=== PATIENT | female | born 1935 | race Caucasian/White ===

== ENCOUNTER 2017-09-29 12:58 | Emergency (ER) | payer MEDICARE ==
--- NOTE | 2017-09-29 13:03 | Emergency Department Record ---
History of Present Illness - General Chief Complaint: Shortness of breath Stated Complaint: DAB Time Seen by Provider: 09/29/17 13:02 Source: Patient Mode of Arrival: Ambulatory Limitations: No limitations - History of Present Illness Initial Comments: 82 yo female presents with cough, wheezing and increased shortness of breath for 3 weeks. She has a history of COPD. She is a former smoker. She is not on any home oxygen. Her cough demonstrates a greenish sputum. No blood. No fevers. No edema or chest pain. MD Complaint: Cough, Shortness of breath Severity: Moderate Consistency: Constant Improves With: Nothing Worsens With: Coughing, Exertion Known History Of: COPD - Related Data Home Medications Medication Instructions Recorded Confirmed Last Taken Aspirin [Aspir-Low] 81 mg PO DAILY 09/29/17 09/29/17 Unknown Meloxicam [Meloxicam] 7.5 mg PO ASDIR 09/29/17 09/29/17 Unknown Previous Rx's Medication Instructions Recorded Azithromycin [Zithromax] 250 mg PO DAILY #4 tab 09/29/17 Prednisone [Prednisone 20Mg] 20 mg PO BID #10 tab 09/29/17 Allergies Allergy/AdvReac Type Severity Reaction Status Date / Time codeine Allergy Severe ANAPHYLAXIS Unverified 09/13/17 08:37 Review of Systems Constitutional: Denies: Chills, Fever, Malaise, Weakness Eyes: Denies: Eye discharge, Eye pain ENT: Reports: Congestion, Throat pain Respiratory: Reports: Cough, Dyspnea, Wheezes Cardiovascular: Reports: Dyspnea on exertion. Denies: Chest pain, Edema, Palpitations, Syncope Endocrine: Denies: Fatigue Gastrointestinal: Denies: Abdominal pain, Diarrhea, Nausea Genitourinary: Denies: Dysuria, Urgency Musculoskeletal: Denies: Arthralgia, Back pain, Myalgia Skin: Denies: Bruising, Change in color, Rash Neurological: Denies: Confusion, Headache, Numbness, Weakness Psychiatric: Denies: Anxiety Hematological/Lymphatic: Denies: Easy bleeding, Easy bruising, Swollen glands Past Medical History - SOCIAL HISTORY Smoking Status: Never smoker Drug Use: None - RESPIRATORY Hx Respiratory Disorders: Yes Hx COPD: Yes Hx Pneumonia: Yes - CARDIOVASCULAR Hx Cardio Disorders: Yes Hx Hypertension: Yes - NEURO Hx Neuro Disorders: Yes Hx Brain Tumor: No Hx CVA: No Hx Dementia: No Hx Dizziness: Yes Hx Headaches: No Hx Neuropathy: No Hx Parkinson's Disease: No Hx Seizures: No Hx Speech Problem: No Hx TIA: No - GI Hx GI Disorders: Yes Hx Abdominal Pain: No Hx Celiac Disease: No Hx Crohn's Disease: No Hx Diverticulitis: No Hx GI Bleed: No Hx Reflux: No Hx Hepatitis/Jaundice: No Hx Hiatal Hernia: No Hx Irritable Bowel: No Hx Liver Disease: No Hx Nausea/Vomiting: No Hx Obstructive Bowel: No Hx Pancreatitis: No Hx Rectal Bleeding: No Hx Ulcer: Yes Hx Wt Loss/Wt Gain: Yes Hx of Polyps: No - Hx Genitourinary Disorders: No - ENDOCRINE Hx Endocrine Disorders: No Hx Thyroid Disease: No - MUSCULOSKELETAL Hx Arthritis: Yes Hx Back Injury: Yes Hx Fibromyalgia: No Hx Gout: No Hx Musculoskeletal Disease: No Hx Osteoporosis: No - PSYCH Hx Psych Problems: No - HEMATOLOGY/ONCOLOGY Hx Hematology/Oncology Disorders: No Family Medical History Hx Heart Disease: Father, Mother, Grandparents Physical Exam - General General Appearance: Alert, Oriented x3, Cooperative, No acute distress Limitations: No limitations - Head Head exam: Normal inspection - Eye Eye exam: Normal appearance, PERRL. negative: Conjunctival injection - ENT ENT exam: Normal exam, Mucous membranes moist Ear exam: Normal external inspection Nasal Exam: Normal inspection Mouth exam: Normal external inspection Teeth exam: Normal inspection Throat exam: Normal inspection. negative: Tonsillar erythema, Tonsillar exudate - Neck Neck exam: Normal inspection, Full ROM. negative: Tenderness - Respiratory Respiratory exam: Decreased breath sounds, Prolonged expiratory, Wheezes. negative: Normal lung sounds bilaterally, Accessory muscle use, Chest wall tenderness, Rales, Respiratory distress, Rhonchi, Stridor - Cardiovascular Cardiovascular Exam: Regular rate, Normal rhythm, Normal heart sounds - GI/Abdominal GI/Abdominal exam: Soft. negative: Tenderness - Rectal Rectal exam: Deferred - exam: Deferred - Extremities Extremities exam: Normal inspection, Full ROM, Normal capillary refill. negative: Tenderness - Back Back exam: Reports: Normal inspection, Full ROM. Denies: Muscle spasm, Rash noted, Tenderness - Neurological Neurological exam: Alert, Normal gait, Oriented X3 - Skin Skin exam: Dry, Intact, Normal color, Warm Course - Reevaluation(s) Reevaluation #1: EKG 13:08 NSR rate 75, intervals Qt 479, axis L, ST no acute changes, No changes from the 12/27/16 EKG. 09/29/17 13:30 09/29/17 14:00 The labs were reviewed No acute changes on the CBC or CMP The influenza were negative The chest XR was reviewed and is consistent with COPD no pneumonia The patient is not febrile, tachycardic or hypoxic She was offered OBV for COPD. She adamantly declined and will go home. I SW with her PCP Aida. She will follow up the patient in the office 09/29/17 14:49 Medical Decision Making - Lab Data Result diagrams: 09/29/17 13:09 09/29/17 13:09 Disposition Disposition: Discharge Clinical Impression: Acute bronchitis with chronic obstructive pulmonary disease (COPD) Disposition: Home, Self-Care Condition: (1) Good Instructions: COPD (Chronic Obstructive Pulmonary Disease) (ED) Additional Instructions: Continue the steroids and antibiotics as directed Return if you have fever, short of breath or any new concerns Call Aida for close follow up Monday Prescriptions: Azithromycin [Zithromax] 250 mg PO DAILY #4 tab Prednisone [Prednisone 20Mg] 20 mg PO BID #10 tab Forms: Patient Portal Access Time of Disposition: 14:16 Quality - Quality Measures Quality Measures: N/A - Blood Pressure Screening Does Patient Have Any of the Following: No Blood Pressure Classification: Hypertensive Reading Systolic Measurement: 202 Diastolic Measurement: 94 Screening for High Blood Pressure: < Pre-Hypertensive BP, F/U Documented > [ [id number]] Pre-Hypertensive Follow-up Interventions: Referral to alternative/primary care provider.
[2017-09-29] MEDS ORDERED: IPRATROPIUM/ALBUTEROL (0.5MG/3MG) NEB INH ONE (13:05)
[2017-09-29] MEDS ORDERED: METHYLPREDNISOLONE PF 125MG/VIAL IVP ONE (13:06)
[2017-09-29] MEDS ORDERED: AZITHROMYCIN 500 MG TABLET PO ONE (13:06)
[2017-09-29 13:28] LABS: BASO % 0.7 % (0-6); GRAN % 76.4 % (47-80); HEMATOCRIT 43.5 % (35.0-47.0); HEMOGLOBIN 14.3 gm/dl (11.6-16.0); LYMPH % 13.2 % (16-45); MEAN CELL VOLUME 91.4 fl (81-97); MEAN CORPUSCULAR HGB CONC 32.9 g/dl (32-36); MEAN PLATELET VOLUME 10.4 fl (7.4-10.4); MONO % 4.7 % (0-9); PLATELET COUNT 229 K/uL (130-400); RED BLOOD COUNT 4.76 M/uL (3.80-5.40); RED CELL DISTRIBUTION WIDTH 13.5 % (11.5-14.5); WHITE BLOOD COUNT W/O DIFF 8.7 K/uL (4.2-12.2)
[2017-09-29 13:36] LABS: BILIRUBIN,TOTAL 0.3 mg/dL (0.2-1.0); CREATININE 1.1 mg/dL (0.5-0.9)
[2017-09-29 13:37] LABS: TOTAL PROTEIN 7.5 g/dL (6.6-8.7)
[2017-09-29 13:42] LABS: ALB/GLOB RATIO 1.4 (1.1-1.8); ALBUMIN 4.4 g/dL (4.0-5.0); INFLUENZA A NEGATIVE (NEGATIVE); INFLUENZA B NEGATIVE (NEGATIVE)
--- NOTE | 2017-09-30 09:48 | RADIOLOGY REPORT ---
EXAM: CHEST 2 VIEWS HISTORY: COUGH, COPD. TECHNIQUE: PA and lateral views. COMPARISON: Two-view chest, 08/01/16. FINDINGS: Stable heart size. Lungs again appear hyperinflated suggesting COPD. No definite acute infiltrate seen. There is some minor bibasilar linear fibrosis or discoid atelectasis present. No pleural effusion or pneumothorax evident. IMPRESSION: 1. HYPERINFLATION CONSISTENT WITH COPD. 2. MILD BIBASILAR LINEAR FIBROSIS OR DISCOID ATELECTASIS. 3. STABLE HEART SIZE. JOB NUMBER: [id number] [facility]
== END 2017-09-29 14:40 | disposition home or self-care (01) ==
LOC: ER 12:58
DX: J20.9 Acute bronchitis, unspecified (principal); J44.0 Chronic obstructive pulmonary disease with (acute) lower respiratory infection; R06.02 Shortness of breath; I10 Essential (primary) hypertension
CPT/HCPCS: 71046; 80053; 85025; 87400; 93005; 93010; 94640; 96374; 99284; J2930

== ENCOUNTER 2019-01-03 11:08 | Emergency (ER) | payer MEDICARE ==
--- NOTE | 2019-01-03 11:38 | Emergency Department Record ---
History of Present Illness - General Chief Complaint: Fall Injury Stated Complaint: FALL YESTERDAY Time Seen by Provider: 01/03/19 11:32 Source: Patient Mode of Arrival: Stretcher - History of Present Illness Initial Comments: Fell yesterday when she bent over to put on her shoes. No she hurts in her hip/ low back pelvis region. She has been ambulating since the fall but with pain. Denies hitting her head or LOC. MD Complaint: Fall Onset/Timin -: Days(s) Fall From: Standing Place Fall Occurred: Home Quality: Aching - [place] Coma Scale Eye Response: (4) Open spontaneously Motor Response: (6) Obeys commands Verbal Response: (5) Oriented [place] Total: 15 - Related Data Allergies Allergy/AdvReac Type Severity Reaction Status Date / Time codeine Allergy Severe ANAPHYLAXIS Unverified 12/05/18 10:14 Travel Screening - Travel/Exposure Within Last 30 Days Have you traveled within the last 30 days?: No - Travel/Exposure Within Last Year Have you traveled outside the [place] in the last year?: No - Additonal Travel Details Have you been exposed to anyone with a communicable illness?: No - Travel Symptoms Symptom Screening: None Review of Systems Reviewed: No additional complaints except as noted below Constitutional: Reports: As per HPI. Denies: Chills, Fever, Malaise, Night sweats, Weakness, Weight change Eyes: Reports: As per HPI. Denies: Eye discharge, Eye pain, Photophobia, Vision change ENT: Reports: As per HPI. Denies: Congestion, Dental pain, Ear pain, Epistaxis , Hearing loss, Throat pain Respiratory: Reports: As per HPI. Denies: Cough, Dyspnea, Hemoptysis, Stridor, Wheezes Cardiovascular: Reports: As per HPI. Denies: Arrhythmia, Chest pain, Dyspnea on exertion, Edema, Murmurs, Orthopnea, Palpitations, Paroxysmal nocturnal dyspnea, Rheumatic Fever, Syncope Endocrine: Reports: As per HPI. Denies: Fatigue, Heat or cold intolerance, Polydipsia, Polyuria Gastrointestinal: Reports: As per HPI. Denies: Abdominal pain, Constipation, Diarrhea, Hematemesis, Hematochezia, Melena, Nausea, Vomiting Genitourinary: Reports: As per HPI. Denies: Abnormal menses, Discharge, Dyspareunia, Dysuria, Frequency, Hematuria, Incontinence, Retention, Urgency Musculoskeletal: Reports: As per HPI. Denies: Arthralgia, Back pain, Gout, Joint swelling, Myalgia, Neck pain Skin: Reports: As per HPI. Denies: Bruising, Change in color, Change in hair/ nails, Lesions, Pruritus, Rash Neurological: Reports: As per HPI. Denies: Abnormal gait, Confusion, Headache, Numbness, Paresthesias, Seizure, Tingling, Tremors, Vertigo, Weakness Psychiatric: Reports: As per HPI. Denies: Anxiety, Auditory hallucinations, Depression, Homicidal thoughts, Suicidal thoughts, Visual hallucinations Hematological/Lymphatic: Reports: As per HPI. Denies: Anemia, Blood Clots, Easy bleeding, Easy bruising, Swollen glands Past Medical History - SOCIAL HISTORY Smoking Status: Former smoker Alcohol Use: None Drug Use: None Drug Use Detail:: Marijuana - RESPIRATORY Hx Respiratory Disorders: Yes Hx COPD: Yes Hx Pneumonia: Yes - CARDIOVASCULAR Hx Cardio Disorders: Yes Hx Hypertension: Yes - NEURO Hx Neuro Disorders: Yes Hx Brain Tumor: No Hx CVA: No Hx Dementia: No Hx Dizziness: Yes Hx Headaches: No Hx Neuropathy: No Hx Parkinson's Disease: No Hx Seizures: No Hx Speech Problem: No Hx TIA: No - GI Hx GI Disorders: Yes Hx Abdominal Pain: No Hx Celiac Disease: No Hx Crohn's Disease: No Hx Diverticulitis: No Hx GI Bleed: No Hx Reflux: No Hx Hepatitis/Jaundice: No Hx Hiatal Hernia: No Hx Irritable Bowel: No Hx Liver Disease: No Hx Nausea/Vomiting: No Hx Obstructive Bowel: No Hx Pancreatitis: No Hx Rectal Bleeding: No Hx Ulcer: Yes Hx Wt Loss/Wt Gain: Yes Hx of Polyps: No - Hx Genitourinary Disorders: Yes Hx UTI: Yes - ENDOCRINE Hx Endocrine Disorders: Yes Hx Diabetes: No Hx Thyroid Disease: Yes - MUSCULOSKELETAL Hx Musculoskeletal Disorders: Yes Hx Arthritis: Yes Hx Back Injury: Yes Hx Fibromyalgia: No Hx Gout: No Hx Musculoskeletal Disease: No Hx Osteoporosis: No - PSYCH Hx Psych Problems: No - HEMATOLOGY/ONCOLOGY Hx Hematology/Oncology Disorders: No Family Medical History Any Significant Family History?: No Hx Heart Disease: Father, Mother, Grandparents Physical Exam - General General Appearance: Alert, Oriented x3, Cooperative, Mild distress - Head Head exam: Normal inspection - Eye Eye exam: Normal appearance, PERRL, EOMI. negative: Conjunctival injection, Nystagmus Pupils: Normal accommodation - ENT ENT exam: Normal exam, Mucous membranes moist, Normal external ear exam, Normal orophraynx, TM's normal bilaterally Ear exam: Normal external inspection. negative: External canal tenderness Nasal Exam: Normal inspection. negative: Discharge, Sinus tenderness Mouth exam: Normal external inspection, Tongue normal Teeth exam: Normal inspection. negative: Dental caries Throat exam: Normal inspection. negative: Tonsillar erythema, Tonsillar exudate - Neck Neck exam: Normal inspection, Full ROM. negative: Lymphadenopathy, Meningismus , Tenderness - Respiratory Respiratory exam: Normal lung sounds bilaterally. negative: Respiratory distress - Cardiovascular Cardiovascular Exam: Regular rate, Normal rhythm, Normal heart sounds - GI/Abdominal GI/Abdominal exam: Soft, Normal bowel sounds. negative: Tenderness - Rectal Rectal exam: Deferred - exam: Deferred - Extremities Extremities exam: Normal inspection, Full ROM, Normal capillary refill, Other ( no shortening or extrernal rotation of legs.). negative: Calf tenderness, Pedal edema, Tenderness - Back Back exam: Reports: Normal inspection, Full ROM, Other (very low deep discomfort to lumbar sacral hip and ischial region, left greater than right.). Denies: CVA tenderness (R), CVA tenderness (L), Muscle spasm, Paraspinal tenderness, Rash noted, Tenderness - Neurological Neurological exam: Alert, CN II-XII intact, Normal gait, Oriented X3, Reflexes normal. negative: Motor sensory deficit - Psychiatric Psychiatric exam: Normal affect, Normal mood - Skin Skin exam: Dry, Intact, Normal color, Warm Course Vital Signs 01/03/19 11:10 Temperature 98.4 F Pulse Rate 69 Respiratory 20 Rate Blood Pressure 167/78 Pulse Ox 92 L - Reevaluation(s) Reevaluation #1: Patient was offered something for pain but declined, "I have tylenol and ibuprofen at home which I can take." 01/03/19 13:34 Medical Decision Making - Management Options MDM Management: No Additional Work-up Planned - Data Complexity MDM Data: Labs Ordered and/or Reviewed, X-Ray Ordered and/or Reviewed (CT Abd/ Pelvis/Hip: No acute fractures,chronic degenerative changes, fat pad prominent likely contusion left hip region, no fx. Per radiologist.) - Lab Data Result diagrams: 01/03/19 12:24 01/03/19 12:24 Disposition Disposition: Discharge Clinical Impression: Fall Qualifiers: Encounter type: initial encounter Qualified Code(s): W19.XXXA - Unspecified fall, initial encounter Contusion of left hip Qualifiers: Encounter type: initial encounter Qualified Code(s): S70.02XA - Contusion of left hip, initial encounter Disposition: Home, Self-Care Condition: (1) Good Instructions: Fall Prevention for Older Adults (ED), Hip Contusion (ED) Additional Instructions: Ice to contusion first 48-72 hours. Tylenol alternated with ibuprofen as directed as needed for pain. Doughnut pillow for comfort. PCP follow up in office as needed. Forms: Patient Portal Access Quality - Quality Measures Quality Measures: N/A - Blood Pressure Screening Does Patient Have Any of the Following: No Blood Pressure Classification: Hypertensive Reading Systolic Measurement: 167 Diastolic Measurement: 78 Screening for High Blood Pressure: Patient Exclusion, Hx of HTN [G9744]
[2019-01-03 12:50] LABS: BASO % 0.5 % (0-6); EOS % 1.7 % (0-6); GRAN % 75.6 % (47-80); HEMATOCRIT 37.4 % (35.0-47.0); HEMOGLOBIN 11.7 gm/dl (11.6-16.0); LYMPH % 14.6 % (16-45); MEAN CELL VOLUME 95.2 fl (81-97); MEAN CORPUSCULAR HEMOGLOBIN 29.8 pg (27-33); MEAN CORPUSCULAR HGB CONC 31.3 g/dl (32-36); MEAN PLATELET VOLUME 11.2 fl (7.4-10.4); MONO % 7.6 % (0-9); PLATELET COUNT 226 K/uL (130-400); RED BLOOD COUNT 3.93 M/uL (3.80-5.40); RED CELL DISTRIBUTION WIDTH 12.8 % (11.5-14.5)
[2019-01-03 13:05] LABS: PARTIAL THROMBOPLASTIN TIME 26.6 SECONDS (24.5-39.1); PROTHROMBIN TIME (PATIENT) 10.1 SECONDS (9.5-12.1)
[2019-01-03 13:07] LABS: BILIRUBIN,TOTAL 0.2 mg/dL (0.2-1.0)
[2019-01-03 13:08] LABS: TOTAL PROTEIN 6.6 g/dL (6.6-8.7)
[2019-01-03 13:13] LABS: ALB/GLOB RATIO 1.8 (1.1-1.8); ALBUMIN 4.2 g/dL (4.0-5.0)
--- NOTE | 2019-01-05 16:23 | CT SCAN REPORT ---
DATE: 01/03/2019. EXAM: CT OF THE ABDOMEN AND PELVIS. HISTORY: FALL WITH LOWER BACK AND LEFT HIP PAIN. TECHNIQUE: Noncontrast CT of the abdomen and pelvis. COMPARISON: None. FINDINGS: Noncalcified 4.0 mm right lower lobe pulmonary nodule (series 3, image 24). Linear consolidations in both lung bases, likely atelectasis or scarring. Unremarkable noncontrast appearance of the liver, spleen, and adrenal glands. Diffuse fatty atrophy of the pancreas. Small, 5.0 mm exophytic hyperdense right upper cortical lesion, Hounsfield units measure up to 83; favor hemorrhagic cyst. Bilateral simple-attenuation renal cysts, largest measuring 4.6 cm on the left. Punctate, 1.0 mm bilateral intrarenal calculi. No hydronephrosis. Unremarkable appearance of the urinary bladder. Diffuse atherosclerotic calcification of the aortoiliac arterial axis. Short segment of focal ectasia involving the infrarenal abdominal aorta measuring up to 2.5 cm in maximal dimension. No focal colonic thickening or inflammatory change. Stomach and small bowel are nondilated. No free air or free fluid. The uterus appears atrophic. No acute fracture is identified. Multilevel degenerative changes in the lumbar spine with significant disc degeneration at L5-S1 with associated bulge. Asymmetric subcutaneous fat induration along the posterolateral aspect of the left hip, partially seen. IMPRESSION: 1. NO ACUTE FINDINGS WITHIN THE ABDOMEN OR PELVIS. NO ACUTE FRACTURE IS SEEN. 2. MILD, ASYMMETRIC SUBCUTANEOUS FAT INDURATION OVERLYING THE POSTEROLATERAL LEFT HIP, POSSIBLY A CONTUSION IN THE SETTING OF RECENT TRAUMA. CORRELATION WITH PHYSICAL EXAMINATION. 3. NONCALCIFIED 4.0 MM RIGHT LOWER LOBE NODULE. IF THERE IS A SMOKING HISTORY , RECOMMEND 12-MONTH FOLLOW-UP CT OF THE CHEST. OTHERWISE NO SPECIFIC FOLLOWUP RECOMMENDED. 4. PUNCTATE BILATERAL INTRARENAL CALCULI WITHOUT HYDRONEPHROSIS. SIMPLE BILATERAL RENAL CYSTS. SMALL, HYPERDENSE LESION IN THE RIGHT UPPER RENAL POLE, MAY REPRESENT A HEMORRHAGIC CYST. Job Number: [id number] [facility]
== END 2019-01-03 13:56 | disposition home or self-care (01) ==
LOC: ER 11:08
DX: S70.02XA Contusion of left hip, initial encounter (principal); M54.5 Low back pain; W01.10XA Fall on same level from slipping, tripping and stumbling with subsequent striking against unspecified object, initial encounter; Y92.009 Unspecified place in unspecified non-institutional (private) residence as the place of occurrence of the external cause; I10 Essential (primary) hypertension; J44.9 Chronic obstructive pulmonary disease, unspecified; Z87.891 Personal history of nicotine dependence
CPT/HCPCS: 74176; 80053; 85025; 85610; 85730; 99283; 99284